=== PATIENT | female | born 1980 | race Caucasian/White ===

== ENCOUNTER 2021-04-01 14:25 | Emergency (ER) | payer OTHER ==
[~2021-04-01 14:25] MED LIST: AUGMENTIN 875-1 EACH PO; PERCOCET 5-3251 EACH PO
[2021-04-01] MEDS ORDERED: CEPHALEXIN500 MG PO (15:57)
[2021-04-01] MEDS ORDERED: BACTRIM DS TAB1 EACH PO (15:57)
[2021-04-01] MEDS ORDERED: NAPROSYN500 MG PO (15:58)
== END 2021-04-01 16:17 | disposition home or self-care (01) ==
LOC: ER1 14:25
DX: L02.416 Cutaneous abscess of left lower limb (principal); L03.116 Cellulitis of left lower limb; F17.210 Nicotine dependence, cigarettes, uncomplicated
CPT/HCPCS: 10060; 87070; 87077; 87186; 87205; 99283